=== PATIENT | male | born 1985 | race Caucasian/White ===

== ENCOUNTER → 2018-12-13 | Outpatient (CLI) | payer MEDICARE, OTHER ==
[~2018-12-13] MED LIST: AMBI10TA PO; ATIV1TAB10 PO; CLON0.5T8 PO; DEPA500T2 PO; HYDR-3363 PO; LEXA1TAB PO; MELA1CAP2 PO; MINI2CAP PO; PRAZ1CAP PO; PROZ20CA11 PO; PROZ40CA PO; REME30TA PO; SERO1TAB PO; SERO400T4 PO; TRAZ-163 PO; TRAZ-252 PO; VIST50CA PO
--- NOTE | 2018-12-13 13:36 | REP ---
MRI of the lumbar spine without contrast Indication: Low back pain. Comparison: None Technique: MRI of the lumbar spine was performed utilizing sagittal STIR, T1 and T2, and axial T1 and T2 weighted imaging. No intravenous contrast was administered. Findings: There is transitional lumbar anatomy. For the purposes of this examination, there are five lumbar vertebra and an intervertebral disc at the S1-S2 level. There is 4 mm retrolisthesis of L5 on S1. There is normal curvature of the lumbar spine. There are endplate degenerative changes at L5-S1 including a loss of disc height and disc desiccation, L4 inferior endplate irregularity and mild loss of vertebral body height, and degenerative endplate signal abnormality. There is minimal endplate edema. Along the L5 inferior endplate there is T1 and T2 hyperintensity posteriorly and T1 and T2 hypointensity anteriorly, consistent with fatty and sclerotic changes. Remaining vertebral body heights and intervertebral disc heights are maintained. The visualized spinal cord is normal. The conus medullaris terminates at the level of L1. The paraspinal soft tissues are within normal limits. Level specific observations: L1-L2, L2-L3, L3-L4, L4-L5: No significant spinal canal stenosis or neural foraminal compromise. The L5-S1: Annular fissure. Disc bulge eccentric to the left with compression of the exiting left L5 nerve root. Superimposed central disc extrusion projecting inferiorly. Bilateral neural foraminal narrowing. Impression: For the purposes of this examination, there are five lumbar vertebra and an intervertebral disc at the S1-S2 level. If surgery is contemplated, complete imaging of the spine should be performed. Essentially single level spondylosis including, grade 1 retrolisthesis, annular fissure. Disc bulge eccentric to the left with compression of the exiting left L5 nerve root. Superimposed central disc extrusion projecting inferiorly. Bilateral neural foraminal narrowing. Minimal loss of L5 vertebral body height. Electronically Signed by Elbert Saha MD 12/13/2018 01:28 P
== END ==
LOC: M RAD 10:46
PROVIDERS: ATTEND Family Medicine
DX: M51.36 Other intervertebral disc degeneration, lumbar region (principal); M51.37 Other intervertebral disc degeneration, lumbosacral region